=== PATIENT | female | born 2000 | race African-American/Black ===

== ENCOUNTER 2022-03-29 15:56 | Emergency (ER) | payer BC ==
[~2022-03-29] VITALS: Ht 167 cm; Wt 111.0 kg
--- NOTE | 2022-03-29 16:53 | ED General ---
General Chief Complaint: General Problems/Pain Stated Complaint: ABNORMAL LABS, LOW PLATELET COUNT Nursing Triage Note: ARRIVED VIA AMB TO ROOM 07 ET WAS SENT HERE BY HER DR FOR ABNORMAL PLATELET COUNT. PT NOTICED PETICHIAE STARTING YESTERDAY. Source of Information: Patient Exam Limitations: No Limitations (MALIK HERRERA) History of Present Illness Date Seen by Provider: Mar 29, 2022 Time Seen by Provider: 16:48 Initial Comments Patient is a 22-year-old female who presents the ED for low platelet count. Had lab work drawn 2 hours before arrival and states her platelet count read is 2. Patient has a history of lupus, RA. Saw her shellac polisher today Dr. Cartwright who recommended come to ED. Had medication change today. Patient had was diagnosed with lupus 6 years ago was placed on Plaquenil and placed on Enbrel 2 years ago. Has been having diffuse joint pain and swelling over the past 2 weeks. She noticed small rash to the right side of her face with small petechiae to the right upper extremity. She denies of any excessive bleeding. Did notice some dark blood in her mucus the past 2 mornings. Last menstrual cycle 1 week ago. She reports a cough over the past several months. Currently seeing a motel clerk at [place]. Denies vomiting, diarrhea, headache, visual changes, unilateral muscle weakness or sensory changes (MALIK HERRERA) Allergies and Home Medications Allergies Coded Allergies: No Known Drug Allergies (Unverified , 03/29/22) Patient Home Medication List Home Medication List Reviewed: Yes (MALIK HERRERA) Review of Systems Review of Systems Constitutional: No chills EENTM: No ear discharge, No hearing loss, No ear pain, No blurred vision Respiratory: No cough, No dyspnea on exertion, No short of breath, No wheezing Cardiovascular: No chest pain Gastrointestinal: No abdominal pain, No diarrhea, No nausea, No vomiting Genitourinary: No decreased output, No discharge Musculoskeletal: No back pain; joint pain, joint swelling Skin: change in color, rash Psychiatric/Neurological: Denies Anxiety (MALIK HERRERA) All Other Systems Reviewed Negative Unless Noted: Yes (MALIK HERRERA) Past Akdonuj-Rrsfga-Hgdiwl Hx Patient Social History Tobacco Use?: No Substance use?: No Alcohol Use?: No (MALIK HERRERA) Physical Exam Vital Signs Vital Signs - First Documented 03/29/22 16:15 Temp 36.3 Pulse 111 Resp 16 B/P (MAP) 182/94 (123) (ANIKA CARSON MD) Vital Signs Capillary Refill : Less Than 3 Seconds (MALIK HERRERA) Height, Weight, BMI Height: '" Weight: lbs. oz. kg; 39.00 BMI Method: General Appearance: No Apparent Distress, WD/WN Eyes: Bilateral Eye Normal Inspection, Bilateral Eye PERRL, Bilateral Eye EOMI, Bilateral Eye Abnormal EOM HEENT: PERRL/EOMI, TMs Normal, Normal ENT Inspection, Pharynx Normal Neck: Full Range of Motion, Normal Inspection, Non Tender, Supple Respiratory: Chest Non Tender, Lungs Clear, Normal Breath Sounds, No Accessory Muscle Use, No Respiratory Distress Cardiovascular: Regular Rate, Rhythm, No Edema, No Gallop Gastrointestinal: Normal Bowel Sounds, No Organomegaly, No Pulsatile Mass, Non Tender Extremity: Normal Capillary Refill, Normal Range of Motion, Non Tender, Other (Petechiae upper extremities) Neurologic/Psychiatric: Alert, No Motor/Sensory Deficits, Normal Mood/Affect Skin: Other (Petechiae upper extremity, right side face) (MALIK HERRERA ) Progress/Results/Core Measures Suspected Sepsis SIRS Temperature: Pulse: 111 Respiratory Rate: 16 Laboratory Tests 03/29/22 16:20: White Blood Count 4.7 Blood Pressure 182 /94 Mean: 123 Laboratory Tests 03/29/22 16:20: Creatinine 0.74, INR Comment 1.1, Platelet Count 3*L, Total Bilirubin 0.7 (MALIK HERRERA) Results/Orders Lab Results Laboratory Tests Test 03/29/22 16:20 03/29/22 18:00 03/29/22 18:09 Range/Units White Blood Count 4.7 4.3-11.0 10^3/uL Red Blood Count 4.38 3.80-5.11 10^6/uL Hemoglobin 11.6 11.5-16.0 g/dL Hematocrit 36 35-52 % Mean Corpuscular Volume 82 80-99 fL Mean Corpuscular Hemoglobin 27 25-34 pg Mean Corpuscular Hemoglobin Concent 32 32-36 g/dL Red Cell Distribution Width 13.1 10.0-14.5 % Platelet Count 3 *L 130-400 10^3/uL Mean Platelet Volume 9.0-12.2 fL Immature Granulocyte % (Auto) 0 % Neutrophils (%) (Auto) 72 42-75 % Lymphocytes (%) (Auto) 17 12-44 % Monocytes (%) (Auto) 11 0-12 % Eosinophils (%) (Auto) 0 0-10 % Basophils (%) (Auto) 0 0-10 % Neutrophils # (Auto) 3.4 1.8-7.8 10^3/uL Lymphocytes # (Auto) 0.8 L 1.0-4.0 10^3/uL Monocytes # (Auto) 0.5 0.0-1.0 10^3/uL Eosinophils # (Auto) 0.0 0.0-0.3 10^3/uL Basophils # (Auto) 0.0 0.0-0.1 10^3/uL Immature Granulocyte # (Auto) 0.0 0.0-0.1 10^3/uL Percent Immature Platelet Fraction 36.8 H 0.0-7.6 % Prothrombin Time 14.3 12.2-14.7 SEC INR Comment 1.1 0.8-1.4 Activated Partial Thromboplast Time 31 24-35 SEC Sodium Level 141 135-145 MMOL/L Potassium Level 3.3 L 3.6-5.0 MMOL/L Chloride Level 104 98-107 MMOL/L Carbon Dioxide Level 23 21-32 MMOL/L Anion Gap 14 5-14 MMOL/L Blood Urea Nitrogen 12 7-18 MG/DL Creatinine 0.74 0.60-1.30 MG/DL Estimat Glomerular Filtration Rate 116 BUN/Creatinine Ratio 16 Glucose Level 94 70-105 MG/DL Calcium Level 9.7 8.5-10.1 MG/DL Corrected Calcium 9.5 8.5-10.1 MG/DL Total Bilirubin 0.7 0.1-1.0 MG/DL Aspartate Amino Transf (AST/SGOT) 53 H 5-34 U/L Alanine Aminotransferase (ALT/SGPT) 73 H 0-55 U/L Alkaline Phosphatase 65 40-136 U/L Lactate Dehydrogenase 241 H 125-220 U/L Total Protein 9.6 H 6.4-8.2 GM/DL Albumin 4.2 3.2-4.5 GM/DL Influenza Type A (RT-PCR) Not Detected Not Detecte Influenza Type B (RT-PCR) Not Detected Not Detecte SARS-CoV-2 RNA (RT-PCR) Not Detected Not Detecte Urine Color YARIEL H Urine Clarity CLEAR Urine pH 6.0 5-9 Urine Specific [place] >=1.030 1.016-1.022 Urine Protein 1+ H NEGATIVE Urine Glucose (UA) NEGATIVE NEGATIVE Urine Ketones NEGATIVE NEGATIVE Urine Nitrite NEGATIVE NEGATIVE Urine Bilirubin NEGATIVE NEGATIVE Urine Urobilinogen 1.0 < = 1.0 MG/DL Urine Leukocyte Esterase NEGATIVE NEGATIVE Urine RBC (Auto) NEGATIVE NEGATIVE Urine RBC NONE /HPF Urine WBC 2-5 /HPF Urine Squamous Epithelial Cells 2-5 /HPF Urine Crystals NONE /LPF Urine Bacteria FEW H /HPF Urine Casts NONE /LPF Urine Mucus SMALL H /LPF Urine Culture Indicated YES Urine Test NEGATIVE NEGATIVE (ANIKA CARSON MD) Medications Given in ED Current Medications Medications Dose Ordered Sig/Stella Route Start Time Stop Time Status Last Admin Dose Admin Methylprednisolone Sodium Succinate 1000 mg/Sodium Chloride 100 ml @ 100 mls/hr ONCE ONCE IV 03/29/22 18:00 03/29/22 18:59 DC 03/29/22 18:01 100 MLS/HR (ANIKA CARSON MD) Vital Signs/I&O 03/29/22 16:15 Temp 36.3 Pulse 111 Resp 16 B/P (MAP) 182/94 (123) (ANIKA CARSON MD) Vital Signs/I&O Capillary Refill : Less Than 3 Seconds (MALIK HERRERA) Blood Pressure Mean: 123 Departure Communication (PCP) Patient presents to ED with petechiae, mild hemoptysis with mucous in the morning only, weakness, joint pain with swelling. Patient follows up with rheumatology at [place]. Was seen today recommended come to ED for low platelet. Platelet on arrival 3. Patient was slightly tachycardic but afebrile. COVID influenza negative. Urinalysis negative for hematuria. Normal hemoglobin and white blood count. Normal coags. 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 Unclear etiology. There is no platelets here at our facility. Attempted to call to fast-track platelets but this was 3 to 4 hours out likely[address] [facility] they would not accept patient due to capacity. Patient agreed to go to [place]. Contacted [facility] who accepted patient. Patient was discussed with Dr. Winters hospitalist who recommended given 1 g of Solu-Medrol. If platelets recommend giving platelets. Patient was accepted by Dr. Webb. Patient will be transferred by EMS. Patient agrees with plan of action. Patient is currently on Plaquenil and Enbrel. She is afebrile. Unclear etiology of the thrombocytopenia which may be autoimmune versus viral versus deficiency (MALIK HERRERA) Impression Primary Impression: Thrombocytopenia Disposition: XFER SHT-TRM HOSP Condition: Stable Transfer Transfer Reason: Exceeds level of care Time Spoke to Accepting Phy: 18:49 Transfer Progress Notes Patient accepted by Dr. Webb Transfer Time: 18:49 Transfer Facility: [facility] Method of Transfer: EMS (MALIK HERRERA) Departure-Patient Inst. Referrals: NO,LOCAL PHYSICIAN (PCP/Family) Primary Care Physician ATTENDING PHYSICIAN NOTE: I was physically present as attending physician in the emergency department during the care of this patient, but I was not directly involved in the decision making or delivery of care for this patient. (ANIKA CARSON MD) MALIK HERRERA Mar 29, 2022 16:53 ANIKA CARSON MD Mar 29, 2022 20:11
[2022-03-29 16:54] LABS: BASOPHILS % (AUTO) 0 % (0-10); EOSINOPHILS % (AUTO) 0 % (0-10); MEAN CORPUSCULAR HGB CONC 32 g/dL (32-36)
[2022-03-29 16:55] LABS: HEMATOCRIT 36 % (35-52); HEMOGLOBIN 11.6 g/dL (11.5-16.0); LYMPHOCYTES # (AUTO) 0.8 10^3/uL (1.0-4.0); LYMPHOCYTES % (AUTO) 17 % (12-44); MEAN CORPUSCULAR HEMOGLOBIN 27 pg (25-34); MEAN CORPUSCULAR VOLUME 82 fL (80-99); MONOCYTES # (AUTO) 0.5 10^3/uL (0.0-1.0); MONOCYTES % (AUTO) 11 % (0-12); NEUTROPHILS # (AUTO) 3.4 10^3/uL (1.8-7.8); NEUTROPHILS % (AUTO) 72 % (42-75); WHITE BLOOD COUNT 4.7 10^3/uL (4.3-11.0)
[2022-03-29 16:58] LABS: PLATELET COUNT 3 10^3/uL (130-400)
[2022-03-29 16:59] LABS: ALBUMIN 4.2 GM/DL (3.2-4.5)
[2022-03-29 17:00] LABS: INR 1.1 (0.8-1.4); POTASSIUM 3.3 MMOL/L (3.6-5.0); PROTHROMBIN TIME PATIENT 14.3 SEC (12.2-14.7)
[2022-03-29 17:01] LABS: CALCIUM 9.7 MG/DL (8.5-10.1)
[2022-03-29 17:02] LABS: TOTAL PROTEIN 9.6 GM/DL (6.4-8.2)
[2022-03-29 17:04] LABS: BILIRUBIN,TOTAL 0.7 MG/DL (0.1-1.0)
[2022-03-29 17:06] LABS: CREATININE SERUM 0.74 MG/DL (0.60-1.30)
[2022-03-29] MEDS ORDERED: methylPREDNISolone SOD SUCC 1,000 MG in NS (IVPB) 100 ML IV ONE (18:00)
[2022-03-29 18:20] LABS: BILIRUBIN,URINE NEGATIVE (NEGATIVE); CLARITY,URINE CLEAR; COLOR,URINE AMBER; GLUCOSE, URINE (UA) NEGATIVE (NEGATIVE); KETONES,URINE NEGATIVE (NEGATIVE); LEUKOCYTE ESTERASE ,URINE NEGATIVE (NEGATIVE); NITRITE,URINE NEGATIVE (NEGATIVE); PROTEIN,URINE 1+ (NEGATIVE)
[2022-03-29 18:37] LABS: BACTERIA,URINE FEW /HPF
[2022-03-29 20:42] VITALS: BP 137/99
== END 2022-03-29 20:44 | disposition short-term general hospital (02) ==
LOC: EDUNIT# 15:56 → ER 16:00
DX: D69.6 Thrombocytopenia, unspecified (principal); R00.0 Tachycardia, unspecified; Z20.822 Contact with and (suspected) exposure to COVID-19; Z28.310 Unvaccinated for COVID-19
CPT/HCPCS: 36415; 80053; 81000; 83010; 83615; 84703; 85025; 85610; 85730; 87088; 87636

== ENCOUNTER 2022-04-05 10:39 | Outpatient (RCR) | payer BC ==
[2022-04-05 11:41] LABS: BASOPHILS % (AUTO) 0 % (0-10); EOSINOPHILS # (AUTO) 0.1 10^3/uL (0.0-0.3); EOSINOPHILS % (AUTO) 0 % (0-10); HEMATOCRIT 33 % (35-52); HEMOGLOBIN 10.9 g/dL (11.5-16.0); LYMPHOCYTES # (AUTO) 6.1 10^3/uL (1.0-4.0); LYMPHOCYTES % (AUTO) 30 % (12-44); MEAN CORPUSCULAR HEMOGLOBIN 27 pg (25-34); MEAN CORPUSCULAR HGB CONC 33 g/dL (32-36); MEAN CORPUSCULAR VOLUME 81 fL (80-99); MEAN PLATELET VOLUME 11.5 fL (9.0-12.2); MONOCYTES # (AUTO) 1.4 10^3/uL (0.0-1.0); MONOCYTES % (AUTO) 7 % (0-12); NEUTROPHILS # (AUTO) 12.6 10^3/uL (1.8-7.8); NEUTROPHILS % (AUTO) 62 % (42-75); PLATELET COUNT 248 10^3/uL (130-400); WHITE BLOOD COUNT 20.3 10^3/uL (4.3-11.0)
[2022-04-05 12:02] LABS: ALBUMIN 3.5 GM/DL (3.2-4.5); BILIRUBIN,TOTAL 0.3 MG/DL (0.1-1.0); CALCIUM 8.7 MG/DL (8.5-10.1); CREATININE SERUM 0.65 MG/DL (0.60-1.30); POTASSIUM 3.3 MMOL/L (3.6-5.0); TOTAL PROTEIN 7.9 GM/DL (6.4-8.2)
== END 2022-04-07 ==
LOC: ONC 10:39
PROVIDERS: ATTEND Internal Medicine Hematology & Oncology
DX: D69.3 Immune thrombocytopenic purpura (principal); M32.9 Systemic lupus erythematosus, unspecified; D72.829 Elevated white blood cell count, unspecified; D64.9 Anemia, unspecified; Z79.52 Long term (current) use of systemic steroids
CPT/HCPCS: 36415; 80053; 82728; 83540; 83550; 84443; 85025

== ENCOUNTER 2022-04-26 12:51 | Outpatient (RCR) | payer BC ==
[2022-04-12 13:25] LABS: BASOPHILS % (AUTO) 0 % (0-10); EOSINOPHILS % (AUTO) 0 % (0-10); HEMATOCRIT 38 % (35-52); HEMOGLOBIN 12.1 g/dL (11.5-16.0); LYMPHOCYTES # (AUTO) 4.5 10^3/uL (1.0-4.0); LYMPHOCYTES % (AUTO) 22 % (12-44); MEAN CORPUSCULAR HEMOGLOBIN 27 pg (25-34); MEAN CORPUSCULAR HGB CONC 32 g/dL (32-36); MEAN CORPUSCULAR VOLUME 84 fL (80-99); MEAN PLATELET VOLUME 10.9 fL (9.0-12.2); MONOCYTES # (AUTO) 1.4 10^3/uL (0.0-1.0); MONOCYTES % (AUTO) 7 % (0-12); NEUTROPHILS # (AUTO) 14.8 10^3/uL (1.8-7.8); NEUTROPHILS % (AUTO) 71 % (42-75); PLATELET COUNT 203 10^3/uL (130-400); WHITE BLOOD COUNT 20.9 10^3/uL (4.3-11.0)
[2022-04-12 13:45] LABS: ALBUMIN 3.9 GM/DL (3.2-4.5); BILIRUBIN,TOTAL 0.7 MG/DL (0.1-1.0); CALCIUM 9.5 MG/DL (8.5-10.1); CREATININE SERUM 0.8 MG/DL (0.60-1.30); POTASSIUM 3.9 MMOL/L (3.6-5.0); TOTAL PROTEIN 8.2 GM/DL (6.4-8.2)
[2022-04-26 13:01] LABS: BASOPHILS # (AUTO) 0.1 10^3/uL (0.0-0.1); BASOPHILS % (AUTO) 0 % (0-10); EOSINOPHILS # (AUTO) 0.1 10^3/uL (0.0-0.3); EOSINOPHILS % (AUTO) 1 % (0-10); HEMATOCRIT 36 % (35-52); HEMOGLOBIN 11.5 g/dL (11.5-16.0); LYMPHOCYTES # (AUTO) 4.2 10^3/uL (1.0-4.0); LYMPHOCYTES % (AUTO) 30 % (12-44); MEAN CORPUSCULAR HEMOGLOBIN 28 pg (25-34); MEAN CORPUSCULAR HGB CONC 32 g/dL (32-36); MEAN CORPUSCULAR VOLUME 87 fL (80-99); MEAN PLATELET VOLUME 10.2 fL (9.0-12.2); MONOCYTES % (AUTO) 8 % (0-12); NEUTROPHILS # (AUTO) 8.4 10^3/uL (1.8-7.8); NEUTROPHILS % (AUTO) 61 % (42-75); PLATELET COUNT 239 10^3/uL (130-400); WHITE BLOOD COUNT 13.9 10^3/uL (4.3-11.0)
[2022-04-26 13:35] LABS: ALBUMIN 3.9 GM/DL (3.2-4.5); BILIRUBIN,TOTAL 0.5 MG/DL (0.1-1.0); CALCIUM 9.4 MG/DL (8.5-10.1); CREATININE SERUM 0.79 MG/DL (0.60-1.30); POTASSIUM 3.7 MMOL/L (3.6-5.0); TOTAL PROTEIN 7.7 GM/DL (6.4-8.2)
[2022-05-07] MEDS ORDERED: GABA300S2 PO (04:42)
== END 2022-05-08 | disposition home or self-care (01) ==
LOC: ONC 12:51
PROVIDERS: ATTEND Internal Medicine Hematology & Oncology
DX: D69.3 Immune thrombocytopenic purpura (principal); D72.828 Other elevated white blood cell count; M32.9 Systemic lupus erythematosus, unspecified
CPT/HCPCS: 36415; 80053; 85025; 99213

== ENCOUNTER 2022-05-07 00:33 | Emergency (ER) | payer BC ==
[2022-05-07 00:55] VITALS: BP 185/110
--- NOTE | 2022-05-07 00:56 | ED General ---
General Chief Complaint: General Problems/Pain Stated Complaint: LEGS ARE NUMB,STS NO INJURIES History of Present Illness Date Seen by Provider: May 07, 2022 Time Seen by Provider: 00:52 Initial Comments 22-year-old female with PMH of lupus is here with complaints of tingling in her legs, below her knees, which began around 5 PM in the evening yesterday. Patient stated that when she took a nap and when she woke up she felt as if her legs were asleep. It did not seem to be improving after that. Patient states that she gets peripheral neuropathy at times possibly due to her lupus. Denies headache, dizziness, chest pain, palpitations, falls, injuries, abdominal pain, dehydration. Patient has never had a stroke. Patient is able to ambulate slowly. Allergies and Home Medications Allergies Coded Allergies: No Known Drug Allergies (Unverified , 03/29/22) Patient Home Medication List Home Medication List Reviewed: Yes Review of Systems Review of Systems Constitutional: no symptoms reported EENTM: no symptoms reported Respiratory: no symptoms reported Cardiovascular: no symptoms reported Gastrointestinal: no symptoms reported Genitourinary: no symptoms reported Musculoskeletal: muscle stiffness, muscle cramps Skin: no symptoms reported Psychiatric/Neurological: Paresthesia, Tingling, Weakness Hematologic/Lymphatic: No Symptoms Reported Immunological/Allergic: no symptoms reported Physical Exam Vital Signs Vital Signs - First Documented 05/07/22 00:55 Temp 36.6 Pulse 103 Resp 18 B/P (MAP) 185/110 (135) Pulse Ox 97 O2 Delivery Room Air Capillary Refill : Height, Weight, BMI Height: '" Weight: lbs. oz. kg; 39.00 BMI Method: General Appearance: No Apparent Distress, WD/WN HEENT: PERRL/EOMI Neck: Full Range of Motion, Normal Inspection, Non Tender, Supple Respiratory: Lungs Clear Cardiovascular: Regular Rate, Rhythm Gastrointestinal: Non Tender, Soft Back: Normal Inspection, No CVA Tenderness, No Vertebral Tenderness Extremity: Normal Capillary Refill, Normal Inspection, Normal Range of Motion, Non Tender, No Calf Tenderness, No Pedal Edema Neurologic/Psychiatric: Alert, Oriented x3, No Motor/Sensory Deficits, Normal Mood/Affect, heel attacher wood II-XII Norm as Tested Skin: Normal Color Progress/Results/Core Measures Suspected Sepsis SIRS Temperature: Pulse: Respiratory Rate: Laboratory Tests 05/07/22 01:18: White Blood Count 14.5H Blood Pressure / Mean: Laboratory Tests 05/07/22 01:18: Creatinine 0.77, Platelet Count 197, Total Bilirubin 0.2 Results/Orders Lab Results Laboratory Tests Test 05/07/22 01:18 05/07/22 01:27 Range/Units White Blood Count 14.5 H 4.3-11.0 10^3/uL Red Blood Count 4.13 3.80-5.11 10^6/uL Hemoglobin 11.6 11.5-16.0 g/dL Hematocrit 36 35-52 % Mean Corpuscular Volume 87 80-99 fL Mean Corpuscular Hemoglobin 28 25-34 pg Mean Corpuscular Hemoglobin Concent 32 32-36 g/dL Red Cell Distribution Width 16.2 H 10.0-14.5 % Platelet Count 197 130-400 10^3/uL Mean Platelet Volume 10.6 9.0-12.2 fL Immature Granulocyte % (Auto) 1 % Neutrophils (%) (Auto) 86 H 42-75 % Lymphocytes (%) (Auto) 10 L 12-44 % Monocytes (%) (Auto) 4 0-12 % Eosinophils (%) (Auto) 0 0-10 % Basophils (%) (Auto) 0 0-10 % Neutrophils # (Auto) 12.4 H 1.8-7.8 10^3/uL Lymphocytes # (Auto) 1.4 1.0-4.0 10^3/uL Monocytes # (Auto) 0.5 0.0-1.0 10^3/uL Eosinophils # (Auto) 0.0 0.0-0.3 10^3/uL Basophils # (Auto) 0.0 0.0-0.1 10^3/uL Immature Granulocyte # (Auto) 0.1 0.0-0.1 10^3/uL Erythrocyte Sedimentation Rate 46 H 0-20 MM/HR Sodium Level 139 135-145 MMOL/L Potassium Level 4.2 3.6-5.0 MMOL/L Chloride Level 107 98-107 MMOL/L Carbon Dioxide Level 22 21-32 MMOL/L Anion Gap 10 5-14 MMOL/L Blood Urea Nitrogen 14 7-18 MG/DL Creatinine 0.77 0.60-1.30 MG/DL Estimat Glomerular Filtration Rate 110 BUN/Creatinine Ratio 18 Glucose Level 190 H 70-105 MG/DL Calcium Level 8.9 8.5-10.1 MG/DL Corrected Calcium 9.2 8.5-10.1 MG/DL Magnesium Level 1.8 1.6-2.4 MG/DL Total Bilirubin 0.2 0.1-1.0 MG/DL Aspartate Amino Transf (AST/SGOT) 12 5-34 U/L Alanine Aminotransferase (ALT/SGPT) 21 0-55 U/L Alkaline Phosphatase 40 40-136 U/L Total Protein 7.1 6.4-8.2 GM/DL Albumin 3.6 3.2-4.5 GM/DL Urine Test NEGATIVE NEGATIVE Urine Opiates Screen NEGATIVE NEGATIVE Urine Oxycodone Screen NEGATIVE NEGATIVE Urine Methadone Screen NEGATIVE NEGATIVE Urine Propoxyphene Screen NEGATIVE NEGATIVE Urine Barbiturates Screen NEGATIVE NEGATIVE Ur Tricyclic Antidepressants Screen NEGATIVE NEGATIVE Urine Phencyclidine Screen NEGATIVE NEGATIVE Urine Amphetamines Screen NEGATIVE NEGATIVE Urine Methamphetamines Screen NEGATIVE NEGATIVE Urine Benzodiazepines Screen NEGATIVE NEGATIVE Urine Cocaine Screen NEGATIVE NEGATIVE Urine Cannabinoids Screen NEGATIVE NEGATIVE My Orders Orders - LOUISE ELIZABETH MD Ct Head Wo-R/O Stroke (05/07/22 01:04) Cbc With Automated Diff (05/07/22 01:04) Comprehensive Metabolic Panel (05/07/22 01:04) Erythrocyte Sedimentation Rate (05/07/22 01:04) Drug Screen Stat (Urine) (05/07/22 01:04) Magnesium (05/07/22 01:04) Hcg,Qualitative Urine (05/07/22 01:06) Lumbar Spine - 2-3 Views (05/07/22 01:07) Vital Signs/I&O 05/07/22 00:55 Temp 36.6 Pulse 103 Resp 18 B/P (MAP) 185/110 (135) Pulse Ox 97 O2 Delivery Room Air Capillary Refill : Progress Note : Progress Note 1. LUPUS INDUCED PERIPHERAL NEUROPATHY - CT HEAD/ NECK: no acute findings - XR LUMBAR SPINE: unremarkable - Gabapentin in ER, prescription given - Toradol 15 mg iv - Advised to follow up with PCP and Neurology within 3 to 5 days -The patient was seen in the ED, and treated appropriately to presentation at a specific point in time. Patient is informed that there is a possibility that disease and illness can evolve and change in acuity rapidly or slowly after patient is discharged from the ER. Precautionary advice given to the patient for immediate return to ER if symptoms worsen or do not resolve, and to seek emergency care sooner rather than later. Pt also advised on the importance of PCP follow up and compliance with management and follow up plan with PCP and/or specialist, as this is part of the management plan. Pt verbally expressed understanding. Departure Impression Primary Impression: Neuropathy due to SLE (systemic lupus erythematosus) Disposition: HOME, SELF-CARE Condition: Stable Departure-Patient Inst. Referrals: NO,LOCAL PHYSICIAN (PCP/Family) Primary Care Physician Patient Instructions: Lupus (DC), Peripheral Neuropathy (DC) Add. Discharge Instructions: Gabapentin bid for 5 days - Ibuprofen 400mg Q6h prn - Follow up with PCP and neurology within 7 days - Return to ER if symptoms worsening All discharge instructions reviewed with patient and/or family. Voiced understanding. Scripts Gabapentin (Gabapentin) 300 Mg/6 Ml (6 Ml) Solution 300 MG PO BID for 5 Days, #10 EA Prov: LOUISE ELIZABETH MD 05/07/22 LOUISE ELIZABETH MD May 07, 2022 00:56
[2022-05-07 01:28] LABS: BASOPHILS % (AUTO) 0 % (0-10); EOSINOPHILS % (AUTO) 0 % (0-10); HEMATOCRIT 36 % (35-52); HEMOGLOBIN 11.6 g/dL (11.5-16.0); LYMPHOCYTES # (AUTO) 1.4 10^3/uL (1.0-4.0); LYMPHOCYTES % (AUTO) 10 % (12-44); MEAN CORPUSCULAR HEMOGLOBIN 28 pg (25-34); MEAN CORPUSCULAR HGB CONC 32 g/dL (32-36); MEAN CORPUSCULAR VOLUME 87 fL (80-99); MEAN PLATELET VOLUME 10.6 fL (9.0-12.2); MONOCYTES # (AUTO) 0.5 10^3/uL (0.0-1.0); MONOCYTES % (AUTO) 4 % (0-12); NEUTROPHILS # (AUTO) 12.4 10^3/uL (1.8-7.8); NEUTROPHILS % (AUTO) 86 % (42-75); PLATELET COUNT 197 10^3/uL (130-400); WHITE BLOOD COUNT 14.5 10^3/uL (4.3-11.0)
[2022-05-07 01:40] LABS: HCG,QUALITATIVE URINE NEGATIVE (NEGATIVE)
[2022-05-07 01:47] LABS: AMPHETAMINE SCREEN, URINE NEGATIVE (NEGATIVE); BARBITURATE SCREEN URINE NEGATIVE (NEGATIVE); BENZODIAZEPINES SCREEN URINE NEGATIVE (NEGATIVE); CANNABINOID SCREEN, URINE NEGATIVE (NEGATIVE); COCAINE SCREEN URINE NEGATIVE (NEGATIVE); METHADONE STAT NEGATIVE (NEGATIVE); OPIATE SCREEN URINE NEGATIVE (NEGATIVE); OXYCODONE STAT NEGATIVE (NEGATIVE); PROPOXYPHENE STAT NEGATIVE (NEGATIVE); TRICYCLIC ANTIDEPRESSANTS SCRE NEGATIVE (NEGATIVE)
[2022-05-07 01:51] LABS: ALBUMIN 3.6 GM/DL (3.2-4.5); POTASSIUM 4.2 MMOL/L (3.6-5.0)
[2022-05-07 01:52] LABS: CALCIUM 8.9 MG/DL (8.5-10.1)
[2022-05-07 01:53] LABS: TOTAL PROTEIN 7.1 GM/DL (6.4-8.2)
[2022-05-07 01:55] LABS: BILIRUBIN,TOTAL 0.2 MG/DL (0.1-1.0)
[2022-05-07 01:57] LABS: CREATININE SERUM 0.77 MG/DL (0.60-1.30)
[2022-05-07 02:00] LABS: MAGNESIUM 1.8 MG/DL (1.6-2.4)
[2022-05-07 02:13] LABS: ERYTHROCYTE SEDIMENTATION RATE 46 MM/HR (0-20)
[2022-05-07] MEDS ORDERED: GABA300S2 PO (04:42)
[2022-05-07] MEDS ORDERED: KETOROLAC 30 MG/ML VIAL IVP ONE (04:45)
[2022-05-07] MEDS ORDERED: GABAPENTIN 300 MG (NEURONTIN) CAP PO ONE (04:45)
--- NOTE | 2022-05-07 05:48 | Diagnostic Imaging Report ---
PROCEDURE: CT head wo r/o stroke. TECHNIQUE: Multiple contiguous axial images were obtained through the brain without the use of intravenous contrast. Auto Exposure Controls were utilized during the CT exam to meet ALARA standards for radiation dose reduction. INDICATION: 22-year-old female presents with numbness and tingling in the lower extremities since 5:00 PM. Patient has a history of lupus. COMPARISONS: None FINDINGS: Midline structures are not displaced. Lateral, 3rd and 4th ventricles are normal in size, shape and anatomic position. There is no mass, mass effect, hydrocephalus or hemorrhage. Padron-white differentiation is normal. There is no sulcal effacement. There are no abnormal extra-axial fluid collections or hemorrhage. Basilar cisterns appear normal. Sinuses, orbits and mastoid air cells are unremarkable. Bone windows show no calvarial changes. IMPRESSION: Unremarkable nonenhanced CT brain. Agree with [facility] report. Dictated by: Dictated on workstation # [id number]
--- NOTE | 2022-05-07 06:07 | Diagnostic Imaging Report ---
INDICATION: Low back pain Lumbar spine AP and lateral views of the lumbar spine show normal vertebral body height and alignment. Disc spaces are normal. IMPRESSION: Negative lumbar spine Dictated by: Dictated on workstation # [id number]
== END 2022-05-07 04:49 | disposition home or self-care (01) ==
LOC: EDUNIT# 00:33 → ER 00:36
DX: G62.9 Polyneuropathy, unspecified (principal); M32.9 Systemic lupus erythematosus, unspecified; Z28.310 Unvaccinated for COVID-19
CPT/HCPCS: 36415; 70450; 72100; 80053; 80306; 83735; 84703; 85025; 85652

== ENCOUNTER → 2022-06-07 | Outpatient (RCR) | payer BC ==
[2022-05-17 13:46] LABS: BASOPHILS % (AUTO) 0 % (0-10); EOSINOPHILS % (AUTO) 0 % (0-10); HEMATOCRIT 38 % (35-52); LYMPHOCYTES # (AUTO) 2.7 10^3/uL (1.0-4.0); LYMPHOCYTES % (AUTO) 16 % (12-44); MEAN CORPUSCULAR HEMOGLOBIN 28 pg (25-34); MEAN CORPUSCULAR HGB CONC 32 g/dL (32-36); MEAN CORPUSCULAR VOLUME 87 fL (80-99); MEAN PLATELET VOLUME 9.9 fL (9.0-12.2); MONOCYTES # (AUTO) 1.1 10^3/uL (0.0-1.0); MONOCYTES % (AUTO) 7 % (0-12); NEUTROPHILS # (AUTO) 12.8 10^3/uL (1.8-7.8); NEUTROPHILS % (AUTO) 76 % (42-75); PLATELET COUNT 274 10^3/uL (130-400); WHITE BLOOD COUNT 16.8 10^3/uL (4.3-11.0)
[2022-05-17 13:58] LABS: ALBUMIN 3.8 GM/DL (3.2-4.5); BILIRUBIN,TOTAL 0.3 MG/DL (0.1-1.0); CALCIUM 9.7 MG/DL (8.5-10.1); CREATININE SERUM 0.73 MG/DL (0.60-1.30); TOTAL PROTEIN 7.8 GM/DL (6.4-8.2)
[~2022-06-07] MED LIST: GABA300S2 PO
[2022-06-07 13:29] LABS: BASOPHILS % (AUTO) 0 % (0-10); EOSINOPHILS % (AUTO) 0 % (0-10); HEMATOCRIT 40 % (35-52); LYMPHOCYTES # (AUTO) 2.1 10^3/uL (1.0-4.0); LYMPHOCYTES % (AUTO) 17 % (12-44); MEAN CORPUSCULAR HEMOGLOBIN 28 pg (25-34); MEAN CORPUSCULAR HGB CONC 33 g/dL (32-36); MEAN CORPUSCULAR VOLUME 85 fL (80-99); MEAN PLATELET VOLUME 10.1 fL (9.0-12.2); MONOCYTES # (AUTO) 1.1 10^3/uL (0.0-1.0); MONOCYTES % (AUTO) 9 % (0-12); NEUTROPHILS % (AUTO) 73 % (42-75); PLATELET COUNT 285 10^3/uL (130-400); WHITE BLOOD COUNT 12.3 10^3/uL (4.3-11.0)
[2022-06-07 13:46] LABS: ALBUMIN 4.3 GM/DL (3.2-4.5); BILIRUBIN,TOTAL 0.5 MG/DL (0.1-1.0); CREATININE SERUM 0.81 MG/DL (0.60-1.30); POTASSIUM 3.7 MMOL/L (3.6-5.0); TOTAL PROTEIN 8.8 GM/DL (6.4-8.2)
== END | disposition home or self-care (01) ==
LOC: ONC 05-17 13:30
PROVIDERS: ATTEND Internal Medicine Hematology & Oncology
DX: D69.3 Immune thrombocytopenic purpura (principal); D72.828 Other elevated white blood cell count; M32.9 Systemic lupus erythematosus, unspecified; D64.9 Anemia, unspecified
CPT/HCPCS: 36415; 80053; 85025; 99213

== ENCOUNTER 2022-06-17 08:45 | Outpatient (RCR) | payer BC ==
[2022-06-17 15:16] LABS: BASOPHILS % (AUTO) 0 % (0-10); EOSINOPHILS % (AUTO) 0 % (0-10); HEMATOCRIT 40 % (35-52); HEMOGLOBIN 13.1 g/dL (11.5-16.0); LYMPHOCYTES # (AUTO) 2.5 10^3/uL (1.0-4.0); LYMPHOCYTES % (AUTO) 21 % (12-44); MEAN CORPUSCULAR HEMOGLOBIN 28 pg (25-34); MEAN CORPUSCULAR HGB CONC 33 g/dL (32-36); MEAN CORPUSCULAR VOLUME 86 fL (80-99); MEAN PLATELET VOLUME 9.7 fL (9.0-12.2); MONOCYTES # (AUTO) 0.9 10^3/uL (0.0-1.0); MONOCYTES % (AUTO) 8 % (0-12); NEUTROPHILS # (AUTO) 8.3 10^3/uL (1.8-7.8); NEUTROPHILS % (AUTO) 70 % (42-75); PLATELET COUNT 289 10^3/uL (130-400); WHITE BLOOD COUNT 11.8 10^3/uL (4.3-11.0)
[2022-06-17 15:34] LABS: ALBUMIN 4.2 GM/DL (3.2-4.5); BILIRUBIN,TOTAL 0.3 MG/DL (0.1-1.0); CALCIUM 9.8 MG/DL (8.5-10.1); CREATININE SERUM 0.78 MG/DL (0.60-1.30); POTASSIUM 3.8 MMOL/L (3.6-5.0); TOTAL PROTEIN 8.4 GM/DL (6.4-8.2)
== END 2022-07-08 | disposition home or self-care (01) ==
LOC: ONC 08:45
PROVIDERS: ATTEND Internal Medicine Hematology & Oncology
DX: D69.3 Immune thrombocytopenic purpura (principal); D72.828 Other elevated white blood cell count; M32.9 Systemic lupus erythematosus, unspecified; D64.9 Anemia, unspecified
CPT/HCPCS: 36415; 80053; 85025; 99213

== ENCOUNTER 2022-09-18 15:10 | Outpatient (RCR) | payer BC ==
[2022-09-18 15:40] LABS: BASOPHILS % (AUTO) 0 % (0-10); EOSINOPHILS % (AUTO) 0 % (0-10); HEMATOCRIT 37 % (35-52); HEMOGLOBIN 12.1 g/dL (11.5-16.0); LYMPHOCYTES % (AUTO) 11 % (12-44); MEAN CORPUSCULAR HEMOGLOBIN 28 pg (25-34); MEAN CORPUSCULAR HGB CONC 32 g/dL (32-36); MEAN CORPUSCULAR VOLUME 85 fL (80-99); MEAN PLATELET VOLUME 9.9 fL (9.0-12.2); MONOCYTES # (AUTO) 0.7 10^3/uL (0.0-1.0); MONOCYTES % (AUTO) 8 % (0-12); NEUTROPHILS # (AUTO) 7.3 10^3/uL (1.8-7.8); NEUTROPHILS % (AUTO) 80 % (42-75); PLATELET COUNT 267 10^3/uL (130-400); WHITE BLOOD COUNT 9.1 10^3/uL (4.3-11.0)
[2022-09-18 15:59] LABS: ALBUMIN 4.2 GM/DL (3.2-4.5); BILIRUBIN,TOTAL 0.4 MG/DL (0.1-1.0); CALCIUM 9.6 MG/DL (8.5-10.1); CREATININE SERUM 0.78 MG/DL (0.60-1.30); POTASSIUM 3.6 MMOL/L (3.6-5.0); TOTAL PROTEIN 8.5 GM/DL (6.4-8.2)
== END 2022-10-08 | disposition home or self-care (01) ==
LOC: ONC 15:10
PROVIDERS: ATTEND Internal Medicine Hematology & Oncology
DX: D69.49 Other primary thrombocytopenia (principal); D72.828 Other elevated white blood cell count; M32.9 Systemic lupus erythematosus, unspecified; D64.9 Anemia, unspecified; J45.909 Unspecified asthma, uncomplicated
CPT/HCPCS: 36415; 80053; 85025; 99213

== ENCOUNTER 2022-10-24 14:38 | Outpatient (RCR) | payer BC ==
[2022-10-24 14:46] LABS: BASOPHILS % (AUTO) 0 % (0-10); EOSINOPHILS % (AUTO) 0 % (0-10); HEMATOCRIT 37 % (35-52); HEMOGLOBIN 11.8 g/dL (11.5-16.0); LYMPHOCYTES # (AUTO) 0.9 10^3/uL (1.0-4.0); LYMPHOCYTES % (AUTO) 7 % (12-44); MEAN CORPUSCULAR HEMOGLOBIN 27 pg (25-34); MEAN CORPUSCULAR HGB CONC 32 g/dL (32-36); MEAN CORPUSCULAR VOLUME 84 fL (80-99); MEAN PLATELET VOLUME 10.4 fL (9.0-12.2); MONOCYTES % (AUTO) 8 % (0-12); NEUTROPHILS # (AUTO) 10.2 10^3/uL (1.8-7.8); NEUTROPHILS % (AUTO) 84 % (42-75); PLATELET COUNT 250 10^3/uL (130-400); WHITE BLOOD COUNT 12.2 10^3/uL (4.3-11.0)
[2022-10-24 15:06] LABS: BILIRUBIN,TOTAL 0.4 MG/DL (0.1-1.0); CALCIUM 9.3 MG/DL (8.5-10.1); CREATININE SERUM 0.78 MG/DL (0.60-1.30); POTASSIUM 3.5 MMOL/L (3.6-5.0); TOTAL PROTEIN 8.2 GM/DL (6.4-8.2)
== END 2022-11-05 | disposition home or self-care (01) ==
LOC: ONC 14:38
PROVIDERS: ATTEND Internal Medicine Hematology & Oncology
DX: D69.49 Other primary thrombocytopenia (principal); D72.828 Other elevated white blood cell count; M32.9 Systemic lupus erythematosus, unspecified; D64.9 Anemia, unspecified; J45.909 Unspecified asthma, uncomplicated
CPT/HCPCS: 36415; 80053; 85025

== ENCOUNTER 2022-12-12 15:05 | Outpatient (RCR) | payer BC ==
[2022-12-12 15:26] LABS: BASOPHILS % (AUTO) 0 % (0-10); EOSINOPHILS % (AUTO) 0 % (0-10); HEMATOCRIT 35 % (35-52); HEMOGLOBIN 11.4 g/dL (11.5-16.0); LYMPHOCYTES # (AUTO) 1.2 10^3/uL (1.0-4.0); LYMPHOCYTES % (AUTO) 18 % (12-44); MEAN CORPUSCULAR HEMOGLOBIN 27 pg (25-34); MEAN CORPUSCULAR HGB CONC 32 g/dL (32-36); MEAN CORPUSCULAR VOLUME 83 fL (80-99); MEAN PLATELET VOLUME 10.6 fL (9.0-12.2); MONOCYTES # (AUTO) 0.5 10^3/uL (0.0-1.0); MONOCYTES % (AUTO) 7 % (0-12); NEUTROPHILS # (AUTO) 4.9 10^3/uL (1.8-7.8); NEUTROPHILS % (AUTO) 73 % (42-75); PLATELET COUNT 264 10^3/uL (130-400); WHITE BLOOD COUNT 6.7 10^3/uL (4.3-11.0)
[2022-12-12 15:44] LABS: ALBUMIN 3.9 GM/DL (3.2-4.5); BILIRUBIN,TOTAL 0.4 MG/DL (0.1-1.0); CALCIUM 9.3 MG/DL (8.5-10.1); CREATININE SERUM 0.73 MG/DL (0.60-1.30)
== END 2023-01-05 | disposition home or self-care (01) ==
LOC: ONC 15:05
PROVIDERS: ATTEND Internal Medicine Hematology & Oncology
DX: D69.49 Other primary thrombocytopenia (principal); D72.828 Other elevated white blood cell count; M32.9 Systemic lupus erythematosus, unspecified; D64.9 Anemia, unspecified; J45.909 Unspecified asthma, uncomplicated
CPT/HCPCS: 36415; 80053; 85025

== ENCOUNTER 2023-01-22 14:54 | Outpatient (RCR) | payer BC ==
[2023-01-16 13:23] LABS: BASOPHILS % (AUTO) 0 % (0-10); EOSINOPHILS % (AUTO) 1 % (0-10); HEMATOCRIT 32 % (35-52); HEMOGLOBIN 10.3 g/dL (11.5-16.0); LYMPHOCYTES # (AUTO) 1.4 10^3/uL (1.0-4.0); LYMPHOCYTES % (AUTO) 33 % (12-44); MEAN CORPUSCULAR HEMOGLOBIN 28 pg (25-34); MEAN CORPUSCULAR HGB CONC 32 g/dL (32-36); MEAN CORPUSCULAR VOLUME 86 fL (80-99); MEAN PLATELET VOLUME 10.3 fL (9.0-12.2); MONOCYTES # (AUTO) 0.4 10^3/uL (0.0-1.0); MONOCYTES % (AUTO) 10 % (0-12); NEUTROPHILS # (AUTO) 2.4 10^3/uL (1.8-7.8); NEUTROPHILS % (AUTO) 56 % (42-75); PLATELET COUNT 200 10^3/uL (130-400); WHITE BLOOD COUNT 4.2 10^3/uL (4.3-11.0)
[2023-01-16 13:43] LABS: ALBUMIN 4.2 GM/DL (3.2-4.5); BILIRUBIN,TOTAL 0.3 MG/DL (0.1-1.0); CALCIUM 8.6 MG/DL (8.5-10.1); CREATININE SERUM 0.69 MG/DL (0.60-1.30); POTASSIUM 3.3 MMOL/L (3.6-5.0); TOTAL PROTEIN 7.6 GM/DL (6.4-8.2)
[~2023-01-22 14:54] MED LIST changes: -GABA300S2 PO; +GABA300S3 PO
== END 2023-02-05 | disposition home or self-care (01) ==
LOC: ONC 14:54
PROVIDERS: ATTEND Internal Medicine Hematology & Oncology
DX: D69.49 Other primary thrombocytopenia (principal); D72.828 Other elevated white blood cell count; M32.9 Systemic lupus erythematosus, unspecified; D64.9 Anemia, unspecified; J45.909 Unspecified asthma, uncomplicated
CPT/HCPCS: 36415; 80053; 82274; 82728; 83540; 83550; 85025

== ENCOUNTER 2023-02-13 14:02 | Outpatient (RCR) | payer BC ==
[2023-02-12 13:24] LABS: BASOPHILS % (AUTO) 0 % (0-10); EOSINOPHILS % (AUTO) 0 % (0-10); HEMATOCRIT 35 % (35-52); HEMOGLOBIN 11.5 g/dL (11.5-16.0); LYMPHOCYTES # (AUTO) 0.9 10^3/uL (1.0-4.0); LYMPHOCYTES % (AUTO) 19 % (12-44); MEAN CORPUSCULAR HEMOGLOBIN 28 pg (25-34); MEAN CORPUSCULAR HGB CONC 33 g/dL (32-36); MEAN CORPUSCULAR VOLUME 84 fL (80-99); MEAN PLATELET VOLUME 11.1 fL (9.0-12.2); MONOCYTES # (AUTO) 0.7 10^3/uL (0.0-1.0); MONOCYTES % (AUTO) 14 % (0-12); NEUTROPHILS # (AUTO) 3.1 10^3/uL (1.8-7.8); NEUTROPHILS % (AUTO) 66 % (42-75); PLATELET COUNT 250 10^3/uL (130-400); WHITE BLOOD COUNT 4.7 10^3/uL (4.3-11.0)
[2023-02-12 13:46] LABS: ALBUMIN 4.5 GM/DL (3.2-4.5); BILIRUBIN,TOTAL 0.5 MG/DL (0.1-1.0); CALCIUM 9.7 MG/DL (8.5-10.1); CREATININE SERUM 0.74 MG/DL (0.60-1.30); POTASSIUM 3.6 MMOL/L (3.6-5.0); TOTAL PROTEIN 8.6 GM/DL (6.4-8.2)
== END 2023-03-07 | disposition home or self-care (01) ==
LOC: ONC 14:02
PROVIDERS: ATTEND Internal Medicine Hematology & Oncology
DX: D69.3 Immune thrombocytopenic purpura (principal); M32.9 Systemic lupus erythematosus, unspecified; J45.909 Unspecified asthma, uncomplicated; D72.828 Other elevated white blood cell count; D64.9 Anemia, unspecified
CPT/HCPCS: 80053; 82728; 83540; 83550; 85025